=== PATIENT | male | born 1960 | race African-American/Black ===

== ENCOUNTER 2018-11-08 06:33 | Emergency (ER) | payer SELFPAY ==
[~2018-11-08] VITALS: Ht 172.7 cm; Wt 96.0 kg
[2018-11-08] MEDS ORDERED: KETOROLAC 60MG/2ML VIAL IM ONE (07:00)
[2018-11-08 08:03] LABS: CLARITY URINE CLEAR (CLEAR); COLOR URINE YELLOW (YELLOW); KETONES URINE NEGATIVE (NEGATIVE); LEUKOCYTE ESTERASE URINE NEGATIVE (NEGATIVE); NITRITE URINE NEGATIVE (NEGATIVE); OCCULT BLOOD URINE 1+ (NEGATIVE); PROTEIN URINE NEGATIVE (NEGATIVE); SPECIFIC GRAVITY URINE 1.014 (1.005-1.030); UROBILINOGEN URINE 0.2 E.U./dL (0.2-1.0)
[2018-11-08] MEDS ORDERED: TRAMADOL 50MG TABLET PO ONE (09:45)
[2018-11-08 09:51] LABS: BASOPHILS % 0.7 % (0.0-2.0); HEMATOCRIT. 44.2 % (42.0-52.0); HEMOGLOBIN. 15.3 g/dL (14.0-18.0); LYMPHOCYTES % 24.9 % (20.0-50.0); MEAN CORPUSCULAR HEMOGLOBIN 32.2 pg (28.0-32.0); MEAN CORPUSCULAR VOLUME 93.1 fL (80.0-94.0); MEAN PLATELET VOLUME 7.4 fl (7.4-10.4); MONOCYTES % 6.5 % (2.0-8.0); NEUTROPHILS % 66.9 % (40.0-76.0); PLATELET 180 x1000/uL (130-400); RED BLOOD CELL COUNT 4.75 mill/uL (4.7-6.1)
[2018-11-08 09:57] LABS: CHLORIDE 105 mEq/L (98-107)
[2018-11-08 10:05] VITALS: BP 151/98
== END 2018-11-08 10:30 | disposition home or self-care (01) ==
LOC: ER 06:33
DX: M54.5 Low back pain (principal); R11.0 Nausea; R26.2 Difficulty in walking, not elsewhere classified; R61 Generalized hyperhidrosis
CPT/HCPCS: 36415; 76770; 80048; 81003; 85025; 96372; 99284; J1885